=== PATIENT | female | born 1950 | race Caucasian/White ===

== ENCOUNTER 2018-05-27 18:28 | Emergency (ER) | payer OTHER ==
[2018-05-27 19:17] LABS: ADD MAN DIFF? NO
[2018-05-27 19:22] LABS: ABNORMAL IP MESSAGE 1; BASOPHILS % 0.3 % (0.0-2.0); EOSINOPHILS # 0.2 10^3/ul (0.0-0.5); EOSINOPHILS % 3.8 % (0.0-7.0); HEMATOCRIT 28.5 % (37.0-47.0); HEMOGLOBIN 8.2 g/dl (12.0-16.0); LYMPHOCYTES # 0.3 10^3/ul (0.8-2.9); LYMPHOCYTES % 6.8 % (15.0-51.0); MEAN CORPUSCULAR HEMOGLOBIN 29.8 pg (29.0-33.0); MEAN CORPUSCULAR HGB CONC 28.8 g/dl (32.0-37.0); MEAN CORPUSCULAR VOLUME 103.6 fl (82.0-101.0); MEAN PLATELET VOLUME 9.8 fl (7.4-10.4); MONOCYTE # 0.3 10^3/ul (0.3-0.9); MONOCYTES % 8.6 % (0.0-11.0); NEUTROPHIL # 3.2 10^3/ul (1.6-7.5); NEUTROPHILS % 79.7 % (39.0-77.0); PLATELET COUNT 442 10^3/UL (140-415); RED BLOOD COUNT 2.75 10^6/ul (4.20-5.40); RED CELL DISTRIBUTION WIDTH 19.2 % (11.5-14.5)
[2018-05-27] MEDS: SOD CHLORIDE 0.9% 1,000 ML IV (19:22)
[2018-05-27] MEDS: ONDANSETRON 4 MG INJ IV (19:22)
[2018-05-27 19:28] LABS: POSITIVE DIFF @See below
[2018-05-27 19:40] LABS: ALANINE AMINOTRANSFERASE 25 IU/L (13-69); ALBUMIN 2.2 g/dl (3.3-4.9); ALBUMIN/GLOBULIN RATIO 0.88; ALKALINE PHOSPHATASE 173 IU/L (42-121); ANION GAP 9 (5-13); ASPARTATE AMINO TRANSFERASE 21 IU/L (15-46); BILIRUBIN,INDIRECT 0.3 mg/dl (0-1.1); BILIRUBIN,TOTAL 0.3 mg/dl (0.2-1.3); BLOOD UREA NITROGEN 61 mg/dl (7-20); CALCIUM 8.4 mg/dl (8.4-10.2); CARBON DIOXIDE 18 mmol/L (21-31); CHLORIDE 115 mmol/L (97-110); Estimated GFR 45 mL/min (>60); GLUCOSE 193 mg/dl (70-220); LIPASE 123 U/L (23-300); POTASSIUM 5.4 mmol/L (3.5-5.1); SODIUM 142 mmol/L (135-144); TOTAL PROTEIN 4.7 g/dl (6.1-8.1)
[2018-05-27 19:41] LABS: PROTIME 17.4 Sec (11.9-14.9); PT RATIO 1.4
[2018-05-27 19:42] LABS: PARTIAL THROMBOPLASTIN TIME 43.8 Sec (23.0-35.0)
[2018-05-27 19:51] LABS: B-TYPE NATRIURETIC PEPTIDE 19500 PG/ML (0-125); TROPONIN-I < 0.012 ng/ml (0.000-0.120)
[2018-05-27] MEDS: KETOROLAC 15 MG INJ IV (20:01)
== END 2018-05-27 21:43 | disposition short-term general hospital (02) ==
LOC: E/R 18:28
DX: R00.2 Palpitations (principal); I10 Essential (primary) hypertension; E66.9 Obesity, unspecified; E86.0 Dehydration; I47.1 Supraventricular tachycardia; D64.9 Anemia, unspecified; E87.5 Hyperkalemia; R07.9 Chest pain, unspecified; Z68.28 Body mass index [BMI] 28.0-28.9, adult
CPT/HCPCS: 36415; 51702; 71045; 80053; 83690; 83880; 84484; 85025; 85610; 85730; 86850; 86900; 86901; 96374; 96375; 99291-25